=== PATIENT | female | born 1955 | race Two or more races ===

== ENCOUNTER 2019-07-24 08:54 | Emergency (ER) | payer OTHER ==
[2019-07-24 09:10] VITALS: BP 160/86; PULSE 108; TEMP 97.7; BMI 27.3
[2019-07-24] MEDS ORDERED: KETOROLAC TROMETHAMINE 30 MG/1 ML VIAL IM ONE (09:52)
[2019-07-24] MEDS ORDERED: KETOROLAC TROMETHAMINE 30 MG/1 ML VIAL ONE (09:57)
--- NOTE | 2019-07-24 10:21 | PDOC ---
History of Present Illness - General Chief Complaint: Back Pain Stated Complaint: LOWER BACK PAIN/ LT LEG PAIN Time Seen by Provider: 07/24/19 09:40 History Source: Patient Exam Limitations: Clinical Condition - History of Present Illness Initial Comments: 07/24/19 09:55 Patient with past medical history of diabetes hypertension presented with complaint of 3 weeks history of left lower back pain which has been worse in the past 4 days. Patient denies any trauma or injury to back. Patient reported she was seen by PCP a week ago for symptoms and prescribed cyclobenzaprine for muscle relaxer but negative for pain and has been taking Tylenol for pain but has not been helping. Denies urinary frequency, dysuria or burning with urination. Denies nausea, vomiting. Patient report pain radiating to posterior left thigh. Denies any other symptoms. Denies saddle paresthesia, urinary fecal incontinence Occurred: reports: other (3 weeks) Severity: reports: moderate Pain Location: reports: back Method of Injury: Yes: unknown Modifying Factors: improves with: rest Loss of Consciousness: no loss of consciousness Past History - Past Medical History Allergies/Adverse Reactions: Allergies Allergy/AdvReac Type Severity Reaction Status Date / Time No Known Allergies Allergy Verified 07/24/19 09:05 Home Medications: Ambulatory Orders Acetaminophen [Tylenol] 650 mg PO QID PRN 07/24/19 Aspirin 81 mg PO DAILY 07/24/19 Atorvastatin Calcium [Lipitor] 10 mg PO HS 07/24/19 Glipizide [Glucotrol -] 5 mg PO DAILY 07/24/19 Lisinopril/Hydrochlorothiazide [Lisinopril-Hctz 20-25 mg Tab] 1 each PO DAILY Methocarbamol [Robaxin -] 500 mg PO BID PRN #14 tablet 07/24/19 Methylprednisolone [Medrol Dose Kip] 4 mg PO ASDIR #21 tablet 07/24/19 Sitagliptin Phos/Metformin HCl [Janumet Xr 50-1,000 mg Tablet] 1 each PO DAILY 07/24/19 COPD: No Diabetes: Yes HTN: Yes Hypercholesterolemia: Yes - Surgical History Cholecystectomy: Yes GI Surgery: Yes (Hernia) - Psycho Social/Smoking Cessation Hx Smoking History: Never smoked Review of Systems - Review of Systems Able to Perform ROS?: Yes Is the patient limited [place] proficient: No Constitutional: No: Fever, Malaise, Weakness HEENTM: No: Symptoms Reported Respiratory: No: Symptoms reported, See HPI, Cough, Orthopnea, Shortness of Breath, SOB with Exertion, SOB at Rest, Stridor, Wheezing, Productive cough, Hemoptysis, Other Cardiac (ROS): No: Symptoms Reported, See HPI, Chest Pain, Edema, Irregular Heart Rate, Lightheadedness, Palpitations, Syncope, Chest Tightness, Other ABD/GI: No: Symptoms Reported, Nausea, Vomiting : No: Symptoms Reported, Burning, Discharge, Frequency, Flank Pain, Pain, Urgency Musculoskeletal: Yes: Symptoms Reported, See HPI, Back Pain (left back pain), Muscle Pain (posterior left thigh) Integumentary: No: Symptoms Reported All Other Systems: Reviewed and Negative *Physical Exam - Vital Signs Last Vital Signs Temp Pulse Resp BP Pulse Ox 97.7 F 108 H 22 H 160/86 98 07/24/19 09:09 07/24/19 09:09 07/24/19 09:09 07/24/19 09:09 07/24/19 09:09 - Physical Exam 07/24/19 09:54 GENERAL: Well developed, well nourished. Awake and alert in moderate acute distress. CARDIOVASCULAR: Regular rate and rhythm. No murmurs, rubs, or gallops. PULMONARY: No evidence of respiratory distress. MUSCULOSKELETAL : Moderate tenderness to left paravertebral muscle of lower lumbar sacral spine of L3-S1 on left side. No midline tenderness. Negative straight leg test SKIN: Warm and dry. Normal capillary refill. NEUROLOGICAL: Alert, awake, appropriate. No motor deficits in the lower extremities. Gait is normal without ataxia. PSYCHIATRIC: Cooperative. Good eye contact. Appropriate mood and affect. General Appearance: Yes: Nourished, Appropriately Dressed, Apparent Distress, Moderate Distress ED Treatment Course - RADIOLOGY Radiology Studies Ordered: Category Date Time Status SPINE-LUMBAR SACRAL [RAD] Stat Radiology 07/24/19 09:52 Ordered Medical Decision Making - Medical Decision Making 07/24/19 09:56 Patient with past medical history of diabetes hypertension presented with complaint of 3 weeks history of left lower back pain which has been worse in the past 4 days. Patient denies any trauma or injury to back. Patient reported she was seen by PCP a week ago for symptoms and prescribed cyclobenzaprine for muscle relaxer but negative for pain and has been taking Tylenol for pain but has not been helping. Denies urinary frequency, dysuria or burning with urination. Denies nausea, vomiting. Patient report pain radiating to posterior left thigh. Denies any other symptoms. Denies saddle paresthesia, urinary fecal incontinence Exam significant for moderate tenderness of left paravertebral muscle of lumbosacral spine of L4 through S2 with no midline tenderness. Patient symptoms likely sciatica from back spasm. Toradol 30 mg IM ordered for pain. Patient took a dose of cyclobenzaprine this morning prior to arrival. X- ray of lumbosacral spine ordered to rule out acute spine pathology 07/24/19 10:30 X-ray of lumbosacral spine shows straightening of the spine consistent with spasm. Patient stable for discharge on Medrol Kip 5 days for anti-inflammatory effect and Robaxin for spasm with advised to do hot compress with neuro spine follow-up Discharge - Discharge Information Problems reviewed: Yes Clinical Impression/Diagnosis: Lumbago with sciatica, left side Qualifiers: Chronicity: acute Back pain laterality: left Qualified Code(s): M54.42 - Lumbago with sciatica, left side Condition: Stable Disposition: HOME - Admission No - Additional Discharge Information Prescriptions: Methocarbamol [Robaxin -] 500 mg PO BID PRN #14 tablet PRN Reason: Back Pain Methylprednisolone [Medrol Dose Kip] 4 mg PO ASDIR #21 tablet - Follow up/Referral Referrals: Octaviano Valladares MD, [facility] [Staff Physician] - - Patient Discharge Instructions Patient Printed Discharge Instructions: DI for Back Pain With Sciatica Additional Instructions: X-ray of the back shows straightening of the spine consistent with back spasm. Take prescribed medication as prescribed for pain and spasm. Apply hot compress to back 2-3 times a day as needed for pain. Follow-up with referred orthopedic credit administration specialist if no improvement in 4 days - Post Discharge Activity
== END 2019-07-24 10:33 | disposition home or self-care (01) ==
LOC: JERFT 08:54
PROC: 3E0233Z Introduction of Anti-inflammatory into Muscle, Percutaneous Approach (ICD-10-PCS; principal; 2019-07-24)
DX: M54.42 Lumbago with sciatica, left side (principal); I10 Essential (primary) hypertension; E78.00 Pure hypercholesterolemia, unspecified; E11.9 Type 2 diabetes mellitus without complications; Z79.84 Long term (current) use of oral hypoglycemic drugs
CPT/HCPCS: 72100-TC-FY; 99282-25